=== PATIENT | female | born 1945 | race Caucasian/White ===

== ENCOUNTER 2019-05-05 17:41 | Emergency (ER) | payer MEDICARE, OTHER ==
[~2019-05-05] VITALS: Ht 149.9 cm; Wt 97.7 kg
[2019-05-05 17:50] VITALS: BP 111/54
--- NOTE | 2019-05-05 18:05 | NUR ---
WAIT AT LOBBY
--- NOTE | 2019-05-05 18:50 | NUR ---
BIB FAMILY C/O LEFT KNEE ABRASION & PAIN S/P FALL X LAST NIGHT. DENIES HITTING HEAD, N/V OR LOC. MOVES ALL EXTREMETIES WITHOUT DIFFICULTY. NO BLEEDING AT THIS TIME. NO BRUISING. PT [id number]. VSS. BED IS DOWN, LCOKED, BED RAIL X 1, ERMD TO SEE PT DENIES BLOOD THINNERS MEDHX: HTN, SLEEP APNEA, ANXIETY
--- NOTE | 2019-05-05 18:58 | NUR ---
dr cortez at bedside
[2019-05-05 19:10] VITALS: BP 119/60
--- NOTE | 2019-05-05 19:10 | NUR ---
Patient discharged with v/s stable. Written and verbal after care instructions given and explained to pt and daughter. Patient alert, oriented and verbalized understanding of instructions. Ambulatory with steady gait. All questions addressed prior to discharge. ID band removed. continue with tylenol for pain
== END 2019-05-05 19:10 | disposition home or self-care (01) ==
LOC: MED 17:41
DX: S80.212A Abrasion, left knee, initial encounter (principal); Z88.5 Allergy status to narcotic agent; Z88.8 Allergy status to other drugs, medicaments and biological substances; W01.0XXA Fall on same level from slipping, tripping and stumbling without subsequent striking against object, initial encounter; Y93.01 Activity, walking, marching and hiking; Y92.89 Other specified places as the place of occurrence of the external cause; Y99.8 Other external cause status
CPT/HCPCS: 90471; 90715; 99283